=== PATIENT | male | born 1980 | race American Indian/Alaskan Native ===

== ENCOUNTER 2017-11-11 21:14 | Observation (INO) | payer BC, OTHER ==
[~2017-11-11] VITALS: Ht 185.4 cm; Wt 142.3 kg
[~2017-11-11 21:14] MED LIST: ACETAMINOPHEN500 MG PO; ATIVAN1 MG PO; GLIPIZIDE ER10 MG PO; GLIPIZIDE PO; GLUCOPHAGE500 MG PO; LISINOPRIL PO; LISINOPRIL40 MG PO; METFORMIN HCL1000 MG PO; PROVENTIL HFA6.7 GM INH; TESSALON PERLE100 MG PO; TYLENOL WITH C1 EACH PO
--- NOTE | 2017-11-12 02:00 | NUR ---
RECEIVED PT TO FLOOR VIA STRETCHER. ORIENTED TO ROOM. PAIN RATED 5/10. RESPIRATIONS ARE EQUAL. PT FEEL ASLEEP AND BECAME TACHYPNEIC. RESPIRATIONS NORMALIZED WHEN WOKEN UP. THROUGHT THE ASSESSMENT PAIN LEVEL INCREASED. RESPIRATIONS DOWN TO 20. 1L NC IN PLACE WHILE PT IS SLEEPING D/T DESATING. CALL LIGHT WITHIN REACH.
--- NOTE | 2017-11-12 03:08 | NUR ---
PAIN MEDICATION FELL OFF JUL. CALLED DR CORONADO FOR NEW PAIN MEDICAION ORDERS. NEW ORDERS RECIEVED.
--- NOTE | 2017-11-12 03:45 | NUR ---
PAIN REPORTED 6/10. TEMP 99.7. PRN PAIN MEDICATION GIVEN. CALL LIGHT WITHIN REACH. ICE WATER REFRESHED. NO N/V. SMALL BM. LUNGS SOUND CLEAR. PT APPEARS FLUSHED. SKIN IS WARM. SLIGHTLY DIAPHORETIC. RESPIRATIONS 20. PT REPORTS NUMBNESS AND TINFLING IN BILAT LE. HEART SOUNDS NORMAL. PULSES +2 X4. CAP REFILL <3. CALL LIGHT WITHIN REACH. REPORTS NO OTHER NEEDS AT THIS TIME
--- NOTE | 2017-11-12 06:07 | NUR ---
CAME TO FLOOR AT 0200. CAMILLE FOR APIN. LAST GIVEN AT 0340. CIPRIANO FOR ABD CRAMPS. CLEAR LIQUID. NO N/V. C-DIFF PENDING. FLAGYL. NS @ 200. SLIGHT TEMP AT 99.1 BS IN ER 309. NO ORDERS FOR ACCU CHECKS. CONTACT ISOLATION.
--- NOTE | 2017-11-12 06:51 | NUR ---
PT INCONTINENT IN BED. CHANGED PAD. PT UP TO BATHROOM TO GET CLEANED UP INDIPEND. REPORTS NO DIZZINESS WHILE STANDING PT IS STEADY ON HIS FEET. TEMP HAS DECREASED TO 98.4, CALL LIGHT WITHIN REACH. REFRESHED WATER.
--- NOTE | 2017-11-12 07:45 | NUR ---
PT SITTING UP IN RECLINER WATCHING TV, WAITING FOR BREAKFAST. DENIES PAIN, NAUSEA, OR OTHER NEEDS OR CONCERNS AT THIS TIME. CALL LIGHT WITHIN REACH.
--- NOTE | 2017-11-12 08:18 | NUR ---
PT BLOOD GLUCOSE 346 AT THIS TIME
--- NOTE | 2017-11-12 08:21 | NUR ---
NOTIFIED OF BLOOD GLUCOSE LEVEL
--- NOTE | 2017-11-12 09:45 | NUR ---
PT C/O OF 10/04 ABD PAIN, MEDICATED WITH PRN NORCO AND BENTYL. PT REPORTS ONLY MILD NAUSEA AND DENIES THE NEED FOR MEDICATION AT THIS TIME. HAD CLEAR LIQUIDS FOR BREAKFAST. IV INFUSING WNL, DRESSING CDI. PT ALERT AND ORIENTED. INDEPENDENT IN ROOM. CALL LIGHT WITHIN REACH.
--- NOTE | 2017-11-12 10:20 | NUR ---
PATIENT SITTING UP IN CHAIR WITH EYES CLOSED. PATIENT STATES THAT HE HAD VOIDED INTO URINAL. THIS CRITICAL CARE CNS COULDN'T FIND ANYONE WHO HAD EMPTIED IT. PATIENT STATES THAT HE WOULD LIKE TO SHOWER LATER TODAY. HANDS AND FACE WASHED AND ORAL CARE DONE. ICE CHIPS GIVEN. NO OTHER NEEDS AT THIS TIME. CALL BUTTON IN REACH.
--- NOTE | 2017-11-12 11:15 | NUR ---
PT SITTING UP IN RECLINER. STATES PAIN IS "MUCH BETTER" RATING 2/10. INDPENDENT IN ROOM, STEADY ON FEET.
--- NOTE | 2017-11-12 11:49 | NUR ---
PT WAS SITTING IN CHAIR, WITH TV ON AND WATCHING A VIDEO ON HIS PHONE. 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 VERY FRIENDLY, SAID THAT THIS IS SOMETHING NEW FOR HIM. FEELS INFORMED, EXTENDED A BLESSING, WILL FOLLOW NEEDED
--- NOTE | 2017-11-12 12:00 | NUR ---
WENT INTO PATIENT'S ROOM TO GET GLUCOSE READING PATIENT SITTING UP EATING LUNCH IN CHAIR. PATIENT STATES THAT SOMEONE HAD ALREADY GOT THE READING. THERE WAS NO RECORD OF HIS GLUCOSE READING AND STAFF DENIES GETTING IT. FAMILY IN ROOM. CALL BUTTON IN REACH. NO OTHER NEEDS AT THIS TIME.
--- NOTE | 2017-11-12 13:00 | NUR ---
PT ATE SOLID FOOD FOR LUNCH, PT REPORTS SOME NAUSEA AFTER EATING BUT NO NEW OR WORSENING PAIN. DENIES NEED FOR ANTIEMETIC AT THIS TIME. CALL LIGHT WITHIN REACH.
[2017-11-12] MEDS ORDERED: LISINOPRIL5 MG PO (14:43)
[2017-11-12] MEDS ORDERED: GLIPIZIDE XL10 MG PO (14:43)
[2017-11-12] MEDS ORDERED: FLECTOR1 EACH TOP (14:44)
[2017-11-12] MEDS ORDERED: METFORMIN HCL500 M1 PO (14:45)
--- NOTE | 2017-11-12 14:45 | NUR ---
PT RESTING IN RECLINER, EYES CLOSED, RESP EVEN AND UNLABORED.
--- NOTE | 2017-11-12 16:46 | NUR ---
STOOL SAMPLE SENT TO LAB AT THIS TIME
--- NOTE | 2017-11-12 17:07 | NUR ---
Medications reconciled using pharmacy records and patient interview
--- NOTE | 2017-11-12 17:40 | NUR ---
PT SITTING UP SLOWLY WORKING ON EATING DINNER. STATES ABD PAIN IS "STARTING UP AGAIN." AND REPORTS MILD HEADACHE. MEDICATED WITH PRN NORCO.
--- NOTE | 2017-11-12 19:20 | NUR ---
BEDSIDE REPORT RECEIVED FROM FINA BANUELOS. PT RATES PAIN 4-5/10, "OKAY". UP IN CHAIR AT THIS TIME. IVF INFUSING WNL. CALL LIGHT AND PERSONAL SUPPLIES IN REACH.
--- NOTE | 2017-11-12 20:09 | NUR ---
1 PA STANDBY PATIENT USED THE BATHROOM AND VOIDED. PATIENT IS BACK IN BED. NO OTHER NEEDS AT THE MOMENT. CALL LIGHT IN REACH.
--- NOTE | 2017-11-12 20:28 | NUR ---
PHONE CALL TO MD, UPDATED REGARDING URINE OUTPUT, BLADDER SCANNED FOR 27 MLS, TELEPHONE ORDER TO CONTINUE IVF ORDERED, NO NEW ORDERS.
--- NOTE | 2017-11-12 20:37 | NUR ---
ROUNDED CHARGE. PATIENT IS RESTING IN BED. PATIENT DENIES ANY COMMENTS, QUESTIONS, OR CONCERNS. NO NEEDS NOTED AT THIS TIME. CALL LIGHT IN REACH.
--- NOTE | 2017-11-12 20:55 | NUR ---
PT ASSESSMENT COMPLETE. BOWEL TONES ACTIVE X 4, ABD SOFT, TENDER WITH PALPATION RUQ, LUQ. PT C/O SLIGHT NAUSEA, PRN MEDICATION ADMINISTERED. IV ANTIBOITIC INFUSING WNL, FLUSHED WNL. PT ENCOURAGED TO DRINK WATER. CBG 188, SS INSULIN ADMINISTERED. LUNGS CLEAR THROUGHOUT ALL LOBES, HR REGULAR RHYTHM. PT C/O 5/10 PAIN, PRN MEDICATION ADMINISTERED. CALL LIGHT IN REACH, NO ADDL REQUESTS AT THIS TIME.
--- NOTE | 2017-11-12 23:30 | NUR ---
NEW BAG IVF INFUSING AT THIS TIME. PT SLEEPING, AWAKENS TO VOICE. NO REQUESTS AT THIS TIME. LIGHTS OFF IN ROOM, CALL LIGHT IN REACH.
--- NOTE | 2017-11-13 02:39 | NUR ---
CHECKED ON PT, APPEARS TO BE SLEEPING, EYES CLOSED, LYING ON LEFT SIDE, SNORING. LIGHTS OFF IN ROOM. IVF INFUSING.
--- NOTE | 2017-11-13 03:52 | NUR ---
CHECKED ON PT, APPEARS TO BE SLEEPING, EYES CLOSED, BREATHING NON-LABORED. IVF INFUSING.
--- NOTE | 2017-11-13 05:20 | NUR ---
PT ASSESSMENT COMPLETE. PT AWAKE, ALERT AND ORIENTED. IVF INFUSING WNL. PT INCONTINENT OF GREEN LIQUID STOOL IN UNDERWEAR, BEDDING. BEDDING CHANGED. SBA TO RESTROOM FOR 700 ML VOID, CONCENTRATED. PTS LUNGS CLEAR THROUGHOUT. PT DENIES NAUSEA. BOWEL TONES ACTIVE X 4. PT DENIES ANY PAIN AT THIS TIME. UP TO CHAIR, JAZZY NELSON IN ROOM. CALL LIGHT IN REACH.
--- NOTE | 2017-11-13 06:43 | NUR ---
PT CONTINUES TO HAVE LIQUID BMS X 2 THIS SHIFT, ONE EPISODE OF INCONTINENCE OF STOOL. SBA TO RESTROOM FOR VOIDS. URINE CONCENTRATED. IVF INFUSING WNL THROUGHOUT SHIFT. PAIN CONTROLLED WITH PRN MEDICATIONS. BOWEL TONES ACTIVE. LUNGS CLEAR THROUGHOUT ALL LOBES. PT ON ROOM AIR THROUGHOUT SHIFT.
--- NOTE | 2017-11-13 08:26 | NUR ---
PT SITTING UP IN RECLINER HAS JUST FINISHED CONSUMING 100% OF BREAKFAST. HE REPORTS "NO REAL PAIN IN MY ABD, JUST SOME LITTLE TWINGES" HE REPORTS "I FEEL SO SLEEPY, AND FOGGY IN MY HEAD" NO NAUSEA, PT UP INDEPENDENTLY TO BATHROOM TO VOID, STEADY GAIT. VOIDED 1000ML+
[2017-11-13] MEDS ORDERED: CIPROFLOXACIN500 MG PO (10:04)
[2017-11-13] MEDS ORDERED: METRONIDAZOLE500 MG PO (10:05)
[2017-11-14] MEDS ORDERED: PROCHLORPERAZINE5 MG PO (12:51)
== END 2017-11-13 12:00 | disposition home or self-care (01) ==
LOC: ED 21:14 → MS 21:15
PROVIDERS: ADMIT Internal Medicine
DX: A04.9 Bacterial intestinal infection, unspecified (principal); E11.65 Type 2 diabetes mellitus with hyperglycemia; F17.210 Nicotine dependence, cigarettes, uncomplicated; E66.9 Obesity, unspecified; Z79.84 Long term (current) use of oral hypoglycemic drugs; Z79.1 Long term (current) use of non-steroidal anti-inflammatories (NSAID); Z79.899 Other long term (current) drug therapy; Z88.5 Allergy status to narcotic agent; Z68.41 Body mass index [BMI] 40.0-44.9, adult
CPT/HCPCS: 36415; 51798; 74177; 80048; 80053; 81001; 82010; 82800; 83036; 83690; 83735; 85025; 87177; 87205; 87209; 87493; 96361; 96374; 96375; 96376; 99285; G0378; J0744; J0780; J1170; J1815; J2405; J2550; J7030; J7120; Q9967

== ENCOUNTER 2019-06-22 15:30 | Emergency (ER) | payer BC, OTHER ==
[~2019-06-22] VITALS: Ht 185.4 cm; Wt 146.1 kg
[~2019-06-22 15:30] MED LIST changes: +CIPROFLOXACIN500 MG PO; +FLECTOR1 EACH TOP; +GLIPIZIDE XL10 MG PO; +LISINOPRIL5 MG PO; +METFORMIN HCL500 M1 PO; +METRONIDAZOLE500 MG PO; +PROCHLORPERAZINE5 MG PO
[2019-06-22] MEDS ORDERED: LANTUS100 UNITS/ SUB-Q (15:39)
== END 2019-06-22 18:18 | disposition home or self-care (01) ==
LOC: ED 15:30
DX: B34.9 Viral infection, unspecified (principal); E11.9 Type 2 diabetes mellitus without complications; Z87.891 Personal history of nicotine dependence; Z88.5 Allergy status to narcotic agent; Z79.899 Other long term (current) drug therapy; Z79.4 Long term (current) use of insulin
CPT/HCPCS: 80053; 81001; 83690; 85025; 87502; 87880; 96361; 96374; 96375; 99283-25; J1885; J2765; J7030

== ENCOUNTER 2019-06-25 00:15 | Emergency (ER) | payer OTHER ==
[~2019-06-25] VITALS: Ht 185.4 cm; Wt 146.1 kg
[~2019-06-25 00:15] MED LIST changes: +LANTUS100 UNITS/ SUB-Q
--- OUTSIDE RECORDS SUMMARY | 2019-06-25 00:20 | XMS ---
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 Aylin has no Care Guidelines for this patient. [facility]12 MO.) [facility] T[facility] NOTE: Visits indicate total known visits. ED/C VISIT TRACKING (12 MO.) 06/25/2019 00:[address] [facility] [place] TYPE: Emergency COMPLAINT: - DIZZINESS/BLURRY VISION 06/22/2019 15:[address] [facility] [place] TYPE: Emergency COMPLAINT: - UNABLE TO TURN HEAD, HEAD PAIN DIAGNOSES: - Other rn long term care (current) drug therapy - retirement (current) use of insulin - Personal history of nicotine dependence - Allergy status to narcotic agent status - 1 Type 2 diabetes mellitus without complications - Viral infection, unspecified INPATIENT VISIT TRACKING (12 MO.) No inpatient visits to display in this time frame [email or web address]
== END 2019-06-25 00:49 | disposition home or self-care (01) ==
LOC: ED 00:15
DX: E11.9 Type 2 diabetes mellitus without complications (principal); Z87.891 Personal history of nicotine dependence; Z79.899 Other long term (current) drug therapy; Z79.4 Long term (current) use of insulin
CPT/HCPCS: 99284

== ENCOUNTER → 2019-07-28 | Emergency (ER) | payer OTHER | LOC: ED 17:03 | DX: Z53.21 Procedure and treatment not carried out due to patient leaving prior to being seen by health care provider (principal) ==

== ENCOUNTER 2020-05-16 09:35 | Emergency (ER) | payer OTHER ==
[~2020-05-16] VITALS: Ht 185.4 cm; Wt 146.1 kg
== END 2020-05-16 10:56 | disposition left against medical advice (07) ==
LOC: ED 09:35
DX: Z53.21 Procedure and treatment not carried out due to patient leaving prior to being seen by health care provider (principal)